=== PATIENT | male | born 1965 | race African-American/Black ===

== ENCOUNTER 2019-04-07 12:13 | Inpatient (IN) | payer OTHER ==
[2019-04-07 13:59] VITALS: BMI 35.5
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
[2019-04-07] MEDS ORDERED: ACETAMINOPHEN 325 MG TABLET (FP) PO PRN ×2 (16:51)
[2019-04-07] MEDS ORDERED: MENTHOL/PHENOL 1 EACH UD MM PRN (16:51)
[2019-04-07] MEDS ORDERED: IBUPROFEN 400 MG TABLET (FP) PO PRN (16:51)
[2019-04-07] MEDS ORDERED: BISMUTH SUBSALICYLATE 524 MG/30 ML UD PO PRN (16:51)
[2019-04-07] MEDS ORDERED: MAGNESIUM CITRATE 300 ML BOTTLE PO PRN (16:51)
[2019-04-07] MEDS ORDERED: chlordiazePOXIDE HCL 25 MG CAPSULE PO PRN (16:51)
[2019-04-07] MEDS ORDERED: MELATONIN 5 MG TABLETS PO PRN (16:51)
[2019-04-07] MEDS ORDERED: MAGNESIUM HYDROX 2400MG/30ML ORAL SUSPENSION 30 ML CUP PO PRN (16:51)
[2019-04-07] MEDS ORDERED: METHOCARBAMOL 500 MG TABLET PO PRN (16:51)
[2019-04-07] MEDS ORDERED: ONDANSETRON *ODT* 4 MG TABLET SL PRN (16:51)
[2019-04-07] MEDS ORDERED: MAG HYDROX/AL HYDROX/SIMETH 30 ML UNIT-DOSE CUP PO PRN (16:51)
[2019-04-07] MEDS ORDERED: hydrOXYzine PAMOATE 25 MG CAPSULE (FP) PO PRN (16:51)
[2019-04-07] MEDS: chlordiazePOXIDE HCL 25 MG CAPSULE PO SCH ×2 (18:30→22:54)
[2019-04-07] MEDS: THIAMINE HCL 100 MG TABLET (FP) PO SCH (22:53)
[2019-04-08] MEDS: chlordiazePOXIDE HCL 25 MG CAPSULE PO SCH ×4 (05:21→22:49)
--- NOTE | 2019-04-08 10:15 | PN ---
[facility] CIWA - CIWA Score Nausea/Vomitin-Mild Nausea/No Vomiting Muscle Tremors: 1-None Visible, but [place] Anxiety: 2 Agitation: 1-Slight > Activity Paroxysmal Sweats: 2 Orientation: 0-Oriented Tacttile Disturbances: 0-None Auditory Disturbances: 0-None Visual Disturbances: 0-None Headache: 1-Very Mild CIWA-Ar Total Score: 8 [facility] Progress Note (SOAP) Subjective: Patient is 54 year old black male with history of Alcohol Dependence and old CVA without residual effects. See admission history. Objective: 04/08/19 10:11 Vitals: BP: 149/87 P:92 R:20 T:98.9 Labs still pending. Assessment: 04/08/19 10:13 1. Opioid Dependence 2. Old CVA 3. HTN Plan: 1. Opioid dependence: Continue detox protocol 2. HTN with history of CVA: Reassess meds Continue to monitor BP 3. Leg Edema; May be secondary to poor diet and high sodium intake. Will add diuretic which will help with water retention and also will help control BP as well. Dr. Nielsen
[2019-04-08 10:59] LABS: HEMATOCRIT 37.4 % (35.4-49); HEMOGLOBIN 12.6 GM/dL (11.7-16.9); MCH 33.3 pg (25.7-33.7); MCHC 33.7 g/dl (32.0-35.9); MEAN CELL VOLUME 98.7 fl (80-96); MEAN PLT VOLUME 9.3 fl (7.5-11.1); PLATELET COUNT 163 K/MM3 (134-434); RBC 3.79 M/mm3 (4.00-5.60); RDW 15.9 % (11.9-15.9); WHITE BLOOD COUNT 5.5 K/mm3 (4.0-10.0)
[2019-04-08 11:10] LABS: BILIRUBIN,TOTAL 0.4 mg/dL (0.2-1); BLOOD UREA NITROGEN 21.3 mg/dL (7-18); CREATININE 1.1 mg/dL (0.55-1.3); POTASSIUM 4.1 mmol/L (3.5-5.1); TOT PROT 6.4 g/dl (6.4-8.2)
[2019-04-08] MEDS: ASPIRIN 81 MG CHEWABLE TABLETS PO SCH (11:15)
[2019-04-08] MEDS: PRENATAL VITAMINS W/ FOLIC ACID TABLET (FP) PO SCH (11:15)
[2019-04-08] MEDS: HYDROCHLOROTHIAZIDE 12.5 MG CAPSULE (FP) PO SCH (11:16)
--- NOTE | 2019-04-08 11:29 | EKG ---
Test Reason : Blood Pressure : / mmHG Vent. Rate : 086 BPM Atrial Rate : 086 BPM P-R Int : 134 ms QRS Dur : 090 ms QT Int : 388 ms P-R-T Axes : 061 052 048 degrees QTc Int : 464 ms NORMAL SINUS RHYTHM NORMAL ECG NO PREVIOUS ECGS AVAILABLE Confirmed by ALEXSANDER GILL MD ([id number]) on 04/08/2019 11:29:06 AM Referred By: MI COLLINS Confirmed By:ALEXSANDER GILL MD
[2019-04-08] MEDS: THIAMINE HCL 100 MG TABLET (FP) PO SCH (22:54)
[2019-04-08] MEDS: ALBUTEROL SO4 8 GM HFA INHALER IH PRN (23:05)
[2019-04-08] MEDS ORDERED: ALBUTEROL SO4 2.5/IPRATROPIUM 0.5 INH SOL 3 ML VIAL.NEB. NEB ONE (23:39)
--- NOTE | 2019-04-08 23:40 | PN ---
[facility] Progress Note Note: Patient complained of shortness of breath. Patient reports that Albuterol inhaler was not helpful at this time. Saturation 96% at room air Vital Signs Temperature 97.2 F L 04/08/19 21:25 Pulse Rate 79 04/08/19 21:25 Respiratory Rate 20 04/08/19 21:25 Blood Pressure 162/76 04/08/19 21:25 O2 Sat by Pulse Oximetry (%) Action: DUONEB nebulizer treatment ordered
[2019-04-09] MEDS: chlordiazePOXIDE HCL 25 MG CAPSULE PO SCH ×4 (05:42→23:00)
[2019-04-09] MEDS ORDERED: cloNIDine HCL 0.1 MG TABLET PO ONE (07:06)
--- NOTE | 2019-04-09 07:09 | PN ---
[facility] Progress Note Note: Patient's blood pressure this morning is B/P 160/110. Patient is asymptomatic Vital Signs Temperature 97.2 F L 04/09/19 06:47 Pulse Rate 79 04/09/19 06:47 Respiratory Rate 20 04/09/19 06:47 Blood Pressure 160/110 H 04/09/19 06:47 O2 Sat by Pulse Oximetry (%) Action: Clonidine 0.1mg tablet oral ordered
[2019-04-09] MEDS: PRENATAL VITAMINS W/ FOLIC ACID TABLET (FP) PO SCH (10:05)
[2019-04-09] MEDS: ASPIRIN 81 MG CHEWABLE TABLETS PO SCH (10:05)
[2019-04-09] MEDS: HYDROCHLOROTHIAZIDE 12.5 MG CAPSULE (FP) PO SCH (10:07)
--- NOTE | 2019-04-09 11:12 | PN ---
S CIWA - CIWA Score Nausea/Vomitin-No Nausea/No Vomiting Muscle Tremors: None Anxiety: 3 Agitation: 0-Normal Activity Paroxysmal Sweats: 3 Orientation: 0-Oriented Tacttile Disturbances: 0-None Auditory Disturbances: 0-None Visual Disturbances: 0-None Headache: 2-Mild CIWA-Ar Total Score: 8 S Progress Note (SOAP) Subjective: c/o sweats, anxiety, and headache. Objective: 04/09/19 11:11 Vital Signs 04/09/19 04/09/19 06:47 09:31 Temperature 97.2 F L 97.5 F L Pulse Rate 79 70 Respiratory 20 18 Rate Blood Pressure 160/110 H 132/67 Lab Results WBC 5.5 K/mm3 (4.0-10.0) 04/08/19 07:30 RBC 3.79 M/mm3 (4.00-5.60) L 04/08/19 07:30 Hgb 12.6 GM/dL (11.7-16.9) 04/08/19 07:30 Hct 37.4 % (35.4-49) 04/08/19 07:30 MCV 98.7 fl (80-96) H 04/08/19 07:30 MCHC 33.7 g/dl (32.0-35.9) 04/08/19 07:30 RDW 15.9 % (11.9-15.9) 04/08/19 07:30 Plt Count 163 K/MM3 (134-434) 04/08/19 07:30 Sodium 140 mmol/L (136-145) 04/08/19 07:30 Potassium 4.1 mmol/L (3.5-5.1) 04/08/19 07:30 Chloride 106 mmol/L (98-107) 04/08/19 07:30 Carbon Dioxide 27 mmol/L (21-32) 04/08/19 07:30 Anion Gap 8 MMOL/L (8-16) 04/08/19 07:30 BUN 21.3 mg/dL (7-18) H 04/08/19 07:30 Creatinine 1.1 mg/dL (0.55-1.3) 04/08/19 07:30 Random Glucose 161 mg/dL (74-106) H 04/08/19 07:30 Calcium 9.0 mg/dL (8.5-10.1) 04/08/19 07:30 Labs noted. Assessment: 04/09/19 11:12 AOX3, in no acute distress. Full ROM, ambulating in the unit. Withdrawal symptoms. Plan: continue detox.
[2019-04-09] MEDS: ALBUTEROL SO4 8 GM HFA INHALER IH PRN (17:39)
[2019-04-09] MEDS: THIAMINE HCL 100 MG TABLET (FP) PO SCH (22:00)
[2019-04-10] MEDS ORDERED: chlordiazePOXIDE HCL 10 MG CAPSULE PO PRN
[2019-04-10] MEDS: ALBUTEROL SO4 8 GM HFA INHALER IH PRN ×2 (04:35→10:27)
[2019-04-10] MEDS ORDERED: ALBUTEROL SO4 2.5/IPRATROPIUM 0.5 INH SOL 3 ML VIAL.NEB. NEB ONE (04:39)
[2019-04-10] MEDS: chlordiazePOXIDE HCL 10 MG CAPSULE PO SCH ×2 (06:28→10:27)
[2019-04-10] MEDS: ASPIRIN 81 MG CHEWABLE TABLETS PO SCH (10:27)
[2019-04-10] MEDS: HYDROCHLOROTHIAZIDE 12.5 MG CAPSULE (FP) PO SCH (10:27)
[2019-04-10] MEDS: PRENATAL VITAMINS W/ FOLIC ACID TABLET (FP) PO SCH (10:27)
--- NOTE | 2019-04-10 12:32 | PN ---
S CIWA - CIWA Score Nausea/Vomitin-No Nausea/No Vomiting Muscle Tremors: 2 Anxiety: 2 Agitation: 2 Paroxysmal Sweats: 2 Orientation: 0-Oriented Tacttile Disturbances: 0-None Auditory Disturbances: 0-None Visual Disturbances: 0-None Headache: 0-None Present CIWA-Ar Total Score: 8 [facility] Progress Note (SOAP) Subjective: agitation sweats irritable Objective: 04/10/19 12:30 Vital Signs Temperature 98.0 F 04/10/19 09:49 Pulse Rate 77 04/10/19 09:49 Respiratory Rate 20 04/10/19 09:49 Blood Pressure 129/63 04/10/19 09:49 O2 Sat by Pulse Oximetry (%) aaox3 ambulating with can no acute distress Assessment: 04/10/19 12:31 withdrawal sx Plan: continue detox increase fluids
[2019-04-10 14:08] VITALS: BP 137/78; PULSE 72; TEMP 97.9
--- NOTE | 2019-04-10 15:26 | PN ---
[facility] Progress Note Note: pt was given several chances to refrain from obscene language towards staff and fellow patients. However pt continued with such behaviour. clinical shore working supervisor, counseling, nursing and medical staff all agreed to have pt contracted and given final warning that if this behavior continues where pt on the unit now feeling threatened by pt he will be administratively discharged. pt continued to display threatening behaviour towards other patients and staff, extensive de- escalation and therapeutic intervention attempted, however, pt remained threatening and menacing to fellow patient and staff. pt administratively discharged to avoid further incident. pt endorsed understanding of risk of relapse withdrawals s/s including DT, yet demonstrated inability to adhere to institutional regulations. pt was escorted off the unit by security without incident or protest.
--- NOTE | 2019-04-10 15:41 | DS ---
[facility] Detox Discharge Summary Admission Date: 04/07/19 Discharge Date: 04/10/19 - History Present History: Alcohol Dependence - Physical Exam Results Vital Signs: Vital Signs Temperature 97.9 F 04/10/19 14:07 Pulse Rate 72 04/10/19 14:07 Respiratory Rate 17 04/10/19 14:07 Blood Pressure 137/78 04/10/19 14:07 O2 Sat by Pulse Oximetry (%) - Treatment Hospital Course: Discharged Condition Good, Rehab Referral Accepted Patient has Accepted a Rehab Referral to: referral provided - Medication Discharge Medications: Ambulatory Orders Albuterol Sulfate Inhaler - [Ventolin HFA Inhaler -] 2 inh PO Q4H PRN 02/01/14 Warfarin Na [Coumadin -] 2.5 mg PO DAILY 02/01/14 Aspirin [ASA -] 81 mg PO DAILY 11/27/15 traZODone HCL [Desyrel -] 50 mg PO HS PRN #30 tablet 11/28/15 - Diagnosis (1) Alcohol dependence with uncomplicated withdrawal Status: Chronic (2) Cluster B personality disorder Status: Acute (3) 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
[2019-04-11] MEDS ORDERED: chlordiazePOXIDE HCL 10 MG CAPSULE PO SCH (05:00)
[2019-04-12] MEDS ORDERED: chlordiazePOXIDE HCL 10 MG CAPSULE PO ONE (05:00)
== END 2019-04-10 15:52 | disposition home or self-care (01) | DRG 775 ==
LOC: YASAS 12:13 → Y6N 17:08
PROVIDERS: ADMIT Surgery; ATTEND Surgery
PROC: HZ2ZZZZ Detoxification Services for Substance Abuse Treatment (ICD-10-PCS; principal; 2019-04-07)
DX: F10.230 Alcohol dependence with withdrawal, uncomplicated (principal); F17.210 Nicotine dependence, cigarettes, uncomplicated; F34.1 Dysthymic disorder; F91.8 Other conduct disorders; I69.315 Cognitive social or emotional deficit following cerebral infarction; I25.10 Atherosclerotic heart disease of native coronary artery without angina pectoris; I10 Essential (primary) hypertension; R60.0 Localized edema; J45.909 Unspecified asthma, uncomplicated; E66.9 Obesity, unspecified; Z68.35 Body mass index [BMI] 35.0-35.9, adult
CPT/HCPCS: 36415; 80053; 82962; 85027; 86593; 93005; 93010; 94640; J0735

== ENCOUNTER 2019-04-26 17:01 | Inpatient (IN) | payer OTHER ==
[2019-04-26 22:42] VITALS: BMI 36.6
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
[2019-04-27] MEDS ORDERED: ALBUTEROL SO4 8 GM HFA INHALER IH PRN (03:13)
[2019-04-27] MEDS ORDERED: MAG HYDROX/AL HYDROX/SIMETH 30 ML UNIT-DOSE CUP PO PRN (03:18)
[2019-04-27] MEDS ORDERED: MENTHOL/PHENOL 1 EACH UD MM PRN (03:18)
[2019-04-27] MEDS ORDERED: ACETAMINOPHEN 325 MG TABLET (FP) PO PRN (03:18)
[2019-04-27] MEDS ORDERED: LOPERAMIDE HCL 2 MG CAPSULE PO PRN (03:18)
[2019-04-27] MEDS ORDERED: MAGNESIUM HYDROX 2400MG/30ML ORAL SUSPENSION 30 ML CUP PO PRN (03:18)
[2019-04-27] MEDS ORDERED: guaiFENesin 200 MG/10 ML 10 ML UNIT-DOSE CUPS PO PRN (03:18)
[2019-04-27] MEDS ORDERED: MAGNESIUM CITRATE 300 ML BOTTLE PO PRN (03:18)
[2019-04-27] MEDS ORDERED: IBUPROFEN 400 MG TABLET (FP) PO PRN (03:18)
[2019-04-27] MEDS ORDERED: hydrOXYzine PAMOATE 50 MG CAPSULE (FP) PO PRN (03:18)
[2019-04-27] MEDS ORDERED: P-EPHED 60MG/TRIPROLIDI 2.5MG TABLET PO PRN (03:18)
[2019-04-27] MEDS ORDERED: NICOTINE POLACRILEX 2 MG GUM BUC PRN (03:18)
[2019-04-27 06:35] VITALS: BP 142/85; PULSE 97; TEMP 98.1
[2019-04-27] MEDS ORDERED: PRENATAL VITAMINS W/ FOLIC ACID TABLET (FP) PO SCH (10:00)
[2019-04-27] MEDS ORDERED: ASPIRIN 81 MG CHEWABLE TABLETS PO SCH (10:00)
[2019-04-27] MEDS ORDERED: NICOTINE 14 MG/24 HOURS TOPICAL PATCH TD SCH (10:00)
--- NOTE | 2019-04-27 10:59 | PN ---
[facility] Progress Note Note: Pt is a new admit to [facility] last night for alcohol use disorder. Pt has multiple admission hx to this facility. Pt was reported to have been in treatment here two weeks ago and then for detox at [facility] 2 days ago. Nurse reports that this patient was smoking in the bathroom in his room 565. security came to check incident per protocol. director hr communications, Chela leon also in attendance. Dr. Nielsen was made aware and reiterated incident to be addressed per protocol. alert o x 3, in no acute distress. oob,ambulating with a cane. Vital Signs - 24 hr 04/26/19 04/26/19 04/27/19 22:39 23:08 06:34 Temperature 99.4 F 99.4 F 98.1 F Pulse Rate 100 H 100 H 97 H Respiratory 18 18 20 Rate Blood Pressure 148/72 148/72 142/85 A/P Behavior problem d/w Pt will be contracted this time and reminded any further violation of contract will be a discharge.
--- NOTE | 2019-04-27 11:04 | DS ---
[facility] Rehab Discharge Summary - [facility] Rehab Discharge Summary Admission Date: 04/27/19 Discharge Date: 04/28/19 - History Present History: Alcohol dependence, Cocaine dependence Additional Comments: Pt is a 54 y/o male with multiple admissions to this facility who was admitted to rehab late last night but declined to continue with rehab. Prior to this admission, pt was here in detox from 04/07/19 to 04/10/19. Pt reports unable to remain sober and went to [facility] for detox 2 days ago before coming here for detox. However, pt has a hx of difficulty following unit regulations and staying successfully in treatment. Pt reports he has medical care at [facility] in [place], [place]. Pertinent Past History: Asthma HTN-no meds CVA w/ Left side paresis Cane as ambulatory Aid - Discharge Physical Exam Vital Signs: Vital Signs Temperature 98.1 F 04/27/19 06:34 Pulse Rate 97 H 04/27/19 06:34 Respiratory Rate 20 04/27/19 06:34 Blood Pressure 142/85 04/27/19 06:34 O2 Sat by Pulse Oximetry (%) Alert o x 3,Ambulating with steady gait with cane. Nad Pertinent Admission Physical Exam Findings: Status unchanged. - Treatment Discharge Condition: Discharge condition good Hospital Course: Pt signed out against medical advice. Hx noncompliance with treatment. - Medication Discharge Medications: Ambulatory Orders Albuterol Sulfate Inhaler - [Ventolin HFA Inhaler -] 2 inh PO Q4H PRN 02/01/14 Aspirin [ASA -] 81 mg PO DAILY 11/27/15 - Medication-Assisted Treatment (MAT) Medication-Assisted Treatment (MAT): No - Discharge Instructions Diet, activity, other medical instructions: Diet:Low salt diet Activity: OOB,ad libia Other medical instructions:Follow up with primary care provider at [place], [place] for medical management. - Follow-up Referral Minutes to complete discharge: 25 - AMA Did Patient Leave Against Medical Advice: Yes
[2019-04-27] MEDS ORDERED: MELATONIN 5 MG TABLETS PO PRN (22:00)
[2019-04-27] MEDS ORDERED: THIAMINE HCL 100 MG TABLET (FP) PO SCH (22:00)
== END 2019-04-27 10:35 | disposition left against medical advice (07) | DRG 770 ==
LOC: YASAS 17:01 → Y5N 04-27 03:02
PROVIDERS: ADMIT Neuromusculoskeletal Medicine & OMM; ATTEND Neuromusculoskeletal Medicine & OMM
PROC: HZ42ZZZ Group Counseling for Substance Abuse Treatment, Cognitive-Behavioral (ICD-10-PCS; principal; 2019-04-27)
DX: F10.20 Alcohol dependence, uncomplicated (principal); F14.20 Cocaine dependence, uncomplicated; I10 Essential (primary) hypertension; J45.909 Unspecified asthma, uncomplicated; I69.854 Hemiplegia and hemiparesis following other cerebrovascular disease affecting left non-dominant side; Z99.89 Dependence on other enabling machines and devices